=== PATIENT | female | born 1935 | race Hispanic/Latino ===

== ENCOUNTER 2019-11-05 16:09 | Outpatient (CLI) | payer MEDICARE ==
--- NOTE | 2019-11-05 16:33 | RAD ---
THREE VIEWS SACROILIAC JOINTS: 11/05/19 INDICATION: right sided low back pain. 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 No periarticular erosive change is evident. No acute fracture is evident. 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 There is mild degenerative change of the hips. There is diffuse osteopenia. There are scattered vascular calcifications. IMPRESSION: Moderate to severe SI joint osteoarthrosis. POS: CET
--- NOTE | 2019-11-05 16:34 | RAD ---
LUMBAR SPINE TWO VIEWS: 11/05/19 INDICATION: History of right sided low back pain. COMPARISON: None. FINDINGS: There is diffuse osteopenia. There is mild multilevel disc degenerative and facet osteoarthritic edwards ge. There is prominent vascular calcification of the abdominopelvic vasculature. IMPRESSION: No acute osseous abnormality. Mild to moderate lumbar spondylosis. POS: CET
== END 2019-11-05 16:10 | disposition home or self-care (01) ==
LOC: BICRAD 16:09
PROVIDERS: ATTEND Family Medicine
DX: M54.41 Lumbago with sciatica, right side (principal); M46.1 Sacroiliitis, not elsewhere classified; M47.816 Spondylosis without myelopathy or radiculopathy, lumbar region; M47.898 Other spondylosis, sacral and sacrococcygeal region
CPT/HCPCS: 72100; 72202